=== PATIENT | female | born 2000 | race Two or more races ===

== ENCOUNTER 2025-07-03 05:34 | Emergency (ER) | payer OTHER ==
[~2025-07-03] VITALS: Ht 160 cm; Wt 53.5 kg
[2025-07-03] MEDS ORDERED: HALOPERIDOL LACTATE INJ 5 MG/ML VIAL ONE (06:08)
[2025-07-03] MEDS ORDERED: LORAZEPAM INJ 2 MG/ML VIAL ONE (06:08)
[2025-07-03] MEDS: HALOPERIDOL LACTATE INJ 5 MG/ML VIAL IM ONE (06:15)
[2025-07-03] MEDS: LORAZEPAM INJ 2 MG/ML VIAL IV ONE (06:15)
[2025-07-03] MEDS: LORAZEPAM INJ 2 MG/ML VIAL IM ONE (06:15)
[2025-07-03 06:29] LABS: PLATELET COUNT (AUTO) 298 K/uL (150-450); RED BLOOD CELL COUNT(AUTO) 4.62 MIL/uL (4.0-5.2); RED CELL DISTRIBUTION WIDTH 13.1 % (11.5-15.0); WHITE BLOOD COUNT (AUTO) 9.7 K/uL (4.3-11.0)
[2025-07-03 06:38] LABS: CALCIUM, SERUM 8.7 mg/dL (8.5-10.1); CREATININE 0.9 mg/dL (0.6-1.3); SODIUM SERUM 141 mmol/L (136-145); UREA NITROGEN, BLOOD 11 mg/dL (7-18)
[2025-07-03 06:44] LABS: ASPARTATE AMINOTRANSFERASE 22 U/L (15-37); TOTAL PROTEIN, SERUM 8.3 g/dL (6.4-8.2)
[2025-07-03 06:48] LABS: ALCOHOL, BLOOD 220 mg/dL (0-10); PREGNANCY TEST SERUM QUAN 0 mIU/mL (0-6)
[2025-07-03 07:51] LABS: APPEARANCE,URINE SLIGHTLY CLOUDY (CLEAR); BLOOD, URINE TRACE-INTA Ery/uL (NEGATIVE); LEUKOCYTE ESTERASE ,URINE NEGATIVE (NEGATIVE); NITRITE, URINE NEGATIVE (NEGATIVE); UGLUCOSE NEGATIVE (NEGATIVE)
[2025-07-03 07:55] LABS: ADD URINE CULTURE NO
[2025-07-03 08:07] LABS: AMPHETAMINE, URINE NEGATIVE (NEGATIVE); BARBITURATE, URINE NEGATIVE (NEGATIVE); BENZODIAZEPINE, URINE NEGATIVE (NEGATIVE); COCCAINE, URINE NEGATIVE (NEGATIVE); OPIATE, URINE NEGATIVE (NEGATIVE)
[2025-07-03 08:08] LABS: CANNABINOID, URINE POSITIVE (NEGATIVE)
[2025-07-03 16:41] VITALS: BP 116/71; TEMP 98; O2SAT 99
== END 2025-07-03 16:41 | disposition home or self-care (01) ==
LOC: ER 05:40
DX: F10.129 Alcohol abuse with intoxication, unspecified (principal); R45.851 Suicidal ideations; R10.20 Pelvic and perineal pain unspecified side; Z79.899 Other long term (current) drug therapy; Y90.7 Blood alcohol level of 200-239 mg/100 ml
CPT/HCPCS: 99285; 96372; 85025; 80048; 80076; 81001; 36415; 84702; 80143; 80320; 80307; J2060; J1200; J1630; G0480